=== PATIENT | male | born 1995 | race Native Hawaiian/Other Pacific Islander ===

== ENCOUNTER 2022-08-23 13:30 | Outpatient (CLI) | payer OTHER ==
--- NOTE | 2022-08-23 16:00 | XRAY Report ---
PROCEDURE: Chest 2 View X-Ray INDICATIONS: HX OF LATENT TUBERCULOSIS TECHNIQUE: 2 views of the chest were acquired. COMPARISON: None. FINDINGS: Surgical changes and devices: None. Lungs and pleura: No pleural effusions or pneumothorax. Lungs are clear. Mediastinum: Mediastinal contours appear normal. Heart size is normal. Bones and chest wall: No suspicious bony lesions. Overlying soft tissues appear unremarkable. IMPRESSION: No acute cardiopulmonary disease. Reviewed by: Lauren Smith MD on 08/23/2022 3:58 PM PDT Approved by: Lauren Smith MD on 08/23/2022 3:58 PM PDT Station ID: [id number]
== END 2022-08-23 13:45 | disposition home or self-care (01) ==
LOC: DI.N 13:30
PROVIDERS: ATTEND Physician Assistant Medical
DX: Z86.11 Personal history of tuberculosis (principal); R05.9 Cough, unspecified; R06.00 Dyspnea, unspecified; F17.200 Nicotine dependence, unspecified, uncomplicated